=== PATIENT | male | born 1965 | race Caucasian/White ===

== ENCOUNTER 2023-08-15 19:24 | Emergency (ER) | payer MEDICARE, SELFPAY ==
[2023-08-15 19:27] VITALS: BP 166/78; PULSE 103; RESP 18; TEMP 37.2; O2SAT 99
--- NOTE | 2023-08-15 19:50 | ED.PSYCH ---
HPI - Psych General Chief Complaint: Psychiatric Symptoms Stated Complaint: Hx of PTSD, wants psych evaluation, NOT SI/HI Time Seen by Provider: 08/15/23 19:42 Source: patient Mode of arrival: ambulatory Limitations: no limitations History of Present Illness HPI Narrative: This is a 58 year old male that presents to the ER for psychiatric evaluation. Reports history of PTSD. Is not on any medications currently. Reports he recently moved here with his daughter. His daughter brought him in to get help tonight. He has had several recent triggers of his PTSD. He would like to seek inpatient help and/or counseling. He has no current thoughts of harming himself or anyone else. He has been admitted at several previous psychiatric facilities. Does have history of self harm. Related Data Allergies Allergy/AdvReac Type Severity Reaction Status Date / Time No Known Allergies Allergy Verified 08/15/23 19:41 Review of Systems Review of Systems: CONSTITUTIONAL: Denies fever PSYCHIATRIC: Reports depression. All systems reviewed & are unremarkable except as noted in HPI and below PMFSH Past Medical History Medical History (Updated 08/17/23 @ 00:00 by Background Daemon) History of posttraumatic stress disorder (PTSD) Social History Social History Substance use type: marijuana Exam Narrative: GENERAL: Well-appearing, well-nourished, and in no acute distress. HEAD: Normocephalic, atraumatic. EYES: EOMI. CHEST: No respiratory distress. HEART: Regular rate EXTREMITIES: Normal range of motion. No edema. SKIN: Warm, dry, no rash. NEURO: No focal deficits. Alert and oriented x3. PSYCH: Poor eye contact. Normal mood and affect Course Course Emergency Course: Patient medically cleared for evaluation by crisis Consultations Consultation #1: Patient evaluated by crisis. He will be voluntarily placed Date: 08/15/23 Vital Signs Vital signs: Vital Signs Temperature 99 F 08/15/23 19:27 Pulse Rate 103 H 08/15/23 19:27 Respiratory Rate 18 08/15/23 19:27 Blood Pressure 166/78 H 08/15/23 19:27 Pulse Oximetry 99 08/15/23 19:27 Oxygen Delivery Room Air 08/15/23 19:27 Temperature 99 F 08/15/23 19:27 Pulse Rate 99 08/16/23 01:00 Respiratory Rate 19 08/16/23 01:00 Blood Pressure 159/72 H 08/16/23 01:00 Pulse Oximetry 99 08/16/23 01:00 Oxygen Delivery Room Air 08/15/23 19:27 MDM - Psych MDM Narrative Medical decision making narrative: Patient presents to the ER for psychiatric evaluation. Reports long-standing history of PTSD. He is not currently on any medications nor does he have a counselor. He presented today to get help. He does not have any current suicidal or homicidal ideations. No concerning findings on his blood workup. Urine drug screen is positive for cannabinoids. Alcohol level is negative. Patient evaluated by crisis. He will be voluntarily placed Differential Diagnosis Differential diagnosis: Likely acute psychosis, depression and acute anxiety Lab Data Attestation: I reviewed the patient's lab results. 08/15/23 19:59 08/15/23 19:58 Labs: Lab Results 08/15/23 08/15/23 08/15/23 Range/Units 19:58 19:59 20:21 WBC 9.0 (4.5-10.0) K/mm3 RBC 4.89 (4.6-6.20) M/mm3 Hgb 15.0 (14.0-18.0) g/dL Hct 43.7 (42.0-52.0) % MCV 89.4 (80-100) fl MCH 30.7 (26-34) pg MCHC 34.3 (32-36) g/dl RDW 12.2 (11.5-14.5) % Plt Count 320 (150-375) k/mm3 MPV 8.9 (7.4-10.4) fl Immature Gran % (Auto) 0.6 H (0-0.5) % Neut % (Auto) 52.0 (45.5-73.1) % Lymph % (Auto) 38.2 (18.3-44.2) % Hardin % (Auto) 6.0 (2.6-8.5) % Eos % (Auto) 2.9 (0-4.4) % Baso % (Auto) 0.3 (0.2-1.2) % Lymph # (Auto) 3.44 H (0.9-3.2) K/mm3 Hardin # (Auto) 0.5 (0.1-0.6) K/mm3 Eos # (Auto) 0.3 (0-0.3) K/mm3 Baso # (Auto) 0.0 (0.0-0.1) K/mm3 Abs Immat Gran (auto) 0.05 H (0.00-0.031)
[2023-08-15 20:08] LABS: Basophils Percent Auto 0.3 % (0.2-1.2); Eosinophils Absolute Auto 0.3 K/mm3 (0-0.3); Eosinophils Percent Auto 2.9 % (0-4.4); Hematocrit 43.7 % (42.0-52.0); Immature Granulocyte Absolute 0.05 K/mm3 (0.00-0.031); Immature Granulocyte Percent A 0.6 % (0-0.5); Lymphocytes Absolute Auto 3.44 K/mm3 (0.9-3.2); Lymphocytes Percent Auto 38.2 % (18.3-44.2); Mean Corpuscular HGB Conc 34.3 g/dl (32-36); Mean Corpuscular Hemoglobin 30.7 pg (26-34); Mean Corpuscular Volume 89.4 fl (80-100); Mean Platelet Volume 8.9 fl (7.4-10.4); Monocytes Absolute Auto 0.5 K/mm3 (0.1-0.6); Neutrophils Absolute Auto 4.7 K/mm3 (1.3-6.7); Platelet Count Result 320 k/mm3 (150-375); Red Blood Count 4.89 M/mm3 (4.6-6.20); Red Cell Distribution Width 12.2 % (11.5-14.5)
[2023-08-15 20:19] LABS: Ethanol < 10 mg/dL (<10)
[2023-08-15 20:20] LABS: Alanine Aminotransferase 30 U/L (6-50); Albumin Level 4.7 g/dL (3.5-5.1); Alkaline Phosphatase 73 U/L (38-126); Anion Gap 8 mmol/L (8-16); Aspartate Amino Transferase 25 U/L (17-59); Bilirubin,Total 0.7 mg/dL (0.2-1.3); Blood Urea Nitrogen 13 mg/dL (9-20); Calcium 9.3 mg/dL (8.4-10.2); Carbon Dioxide 26 mmol/L (22-30); Chloride 102 mmol/L (98-107); Estimated CRCL calculation 102 ml/min; Estimated Glomerular Filt Rate > 60; Glucose 138 mg/dL (65-110); Potassium 3.5 mmol/L (3.4-5.0); Sodium 136 mmol/L (137-145)
[2023-08-15 20:45] LABS: SARS-CoV-2 RNA PCR Negative (Negative)
[2023-08-15 20:47] LABS: Amphetamine Screen Urine Negative (Negative); Barbiturate Screen Urine Negative (Negative); Benzodiazepines Screen Urine Negative (Negative); Cannabinoid Screen Urine Positive (Negative); Cocaine Screen Urine Negative (Negative); Methadone Screen Urine Negative (Negative); Opiate Screen Urine Negative (Negative); Phencyclidine Screen Urine Negative (Negative)
[2023-08-15 20:48] LABS: Appearance Urine Clear (Clear); Bilirubin Urine Negative (Negative); Blood Urine Negative (Negative); Color Urine Dark Yellow (Yellow); Glucose Urine UA Negative (Negative); Ketones Urine Trace mg/dL (Negative); Leukocyte Esterase Ur Negative LEU/UL (Negative); Nitrate Urine Negative (Negative); Protein Urine Negative (Negative); Specific Grav Ur 1.023 (1.001-1.035)
[2023-08-15 21:06] LABS: Add Urine Microscopic? NO
--- NOTE | 2023-08-16 00:43 | PC.NURSE ---
Pt evaluated by crisis. Pt agrees to voluntary admit. Awaiting multiple facilities to call back. All paperwork in pt chart.
--- NOTE | 2023-08-16 00:48 | PC.NURSE ---
Barbie from [facility] called back and stated the patient did not meet criteria to be inpatient with them due to being low acuity .
[2023-08-16 01:00] VITALS: BP 159/72; PULSE 99; RESP 19; O2SAT 99
--- NOTE | 2023-08-16 02:38 | PC.NURSE ---
Pt accepted at [facility] and received bed placement at this time. RN taking pt will call for report, then transport will be arranged.
--- NOTE | 2023-08-16 02:46 | PC.NURSE ---
[facility] transport set up by DARIO Durant pathology secretary/transcriptionist. [facility] to be here approx 4:45.
== END 2023-08-16 05:51 ==
PROVIDERS: Emergency Provider Physician Assistant
DX: F43.11 Post-traumatic stress disorder, acute (principal); Z11.52 Encounter for screening for COVID-19
CPT/HCPCS: 36415; 80053; 80307; 81003; 84443; 85025; 87635; 99285